=== PATIENT | male | born 1990 | race American Indian/Alaskan Native ===

== ENCOUNTER 2017-10-23 07:34 | Day surgery (SDC) | payer BC ==
[2017-07-23 11:28] VITALS: BMI 21.5
[2017-10-23 08:28] VITALS: O2SAT 100
[2017-10-23] MEDS ORDERED: Lactated Ringer's 1,000 ML IV ONE ×2 (09:20)
[2017-10-23] MEDS ORDERED: Propofol 10 mg/ml Inj (20 ML) ONE ×2 (09:25→09:35)
[2017-10-23 10:18] VITALS: TEMP 96.9
[2017-10-23 10:19] VITALS: RESP 16
[2017-10-23 13:04] VITALS: BP 111/75; PULSE 66
== END 2017-10-23 11:00 | disposition home or self-care (01) ==
LOC: C.ENDO 07:34
PROVIDERS: ATTEND Internal Medicine Gastroenterology
DX: K62.5 Hemorrhage of anus and rectum (principal); K64.1 Second degree hemorrhoids
CPT/HCPCS: 45378; J2001; J2704; J7120